=== PATIENT | female | born 1960 | race Caucasian/White ===

== ENCOUNTER 2023-02-15 11:13 | Emergency (ER) | payer OTHER ==
[~2023-02-15] VITALS: Ht 160 cm; Wt 96.4 kg
[2023-02-15 12:24] LABS: Urine Bacteria FEW /hpf (None Seen); Urine Blood Negative /uL (Negative); Urine Clarity Clear (Clear); Urine Color Yellow (Yellow); Urine Hyaline Cast FEW /lpf (0 - 2); Urine Mucus FEW (None Seen); Urine Protein, UAD Negative (Negative); Urine Specific Gravity 1.017 (1.001-1.035); Urine Urobilinogen Normal (Negative); Urine WBC 2 /hpf (0 - 5)
[2023-02-15 15:57] VITALS: BP 142/82; PULSE 70; RESP 18; TEMP 97.7; O2SAT 96
== END 2023-02-15 16:56 | disposition home or self-care (01) ==
LOC: ER 11:13
DX: M24.812 Other specific joint derangements of left shoulder, not elsewhere classified (principal); M79.622 Pain in left upper arm; I10 Essential (primary) hypertension; F32.9 Major depressive disorder, single episode, unspecified; Z88.5 Allergy status to narcotic agent
CPT/HCPCS: 36415; 81001; 84484; 93005

== ENCOUNTER 2024-03-02 19:50 | Emergency (ER) | payer OTHER ==
[~2024-03-02] VITALS: Ht 160 cm; Wt 95.3 kg
[2024-03-02 20:26] LABS: Basophils # (auto) 0.1 10 ^3/uL (0-0.2); Eosinophils # (auto) 0.3 10 ^3/uL (0-0.8); Eosinophils % (auto) 2.9 % (0.0-7.0); Hematocrit 39.9 % (36.0-46.0); Hemoglobin 13.6 g/dL (12.2-16.2); Lymphocytes # (auto) 3.8 10 ^3/uL (0.4-5.4); Mean Corpuscular Volume 88.3 fL (80.0-100.0); Monocytes # (auto) 0.8 10 ^3/uL (0-1.3); Neutrophils # (auto) 4.1 10 ^3/uL (1.6-8.6); Neutrophils % (auto) 45.1 % (37.0-80.0); Nucleated Red Blood Cells % 0.2 %; Platelet Count (auto) 271 10^3/uL (140-450); Red Blood Cells 4.52 10^6/uL (4.0-5.20); Red Cell Distribution Width 13.9 % (11.8-14.3); White Blood Cell 9.1 10^3/uL (4.4-10.8)
[2024-03-02 20:43] LABS: Alanine Aminotransferase 22 U/L (7-40); Alkaline Phosphatase 125 U/L (46-116); Anion Gap 7 (5-15); BUN/Creatinine Ratio 17.4 (10.0-20.0); Blood Urea Nitrogen 19 mg/dL (9-23); Calcium 9.7 mg/dL (8.7-10.4); Carbon Dioxide 27 mmol/L (20-31); Chloride 106 mmol/L (98-107); Glucose 78 mg/dL (74-106); Potassium 4.3 mmol/L (3.5-5.1); Sodium 140 mmol/L (136-145)
[2024-03-02 20:44] LABS: Albumin 4.5 g/dL (3.2-4.8); Aspartate Aminotransferase 16 U/L (13-40); Bilirubin, Total 0.2 mg/dL (0.2-1.0); Total Protein 7.2 g/dL (5.7-8.2)
[2024-03-02 22:19] LABS: Urine Bacteria FEW /hpf (None Seen); Urine Blood Negative /uL (Negative); Urine Clarity Clear (Clear); Urine Color Colorless (Yellow); Urine Protein, UAD Negative (Negative); Urine Specific Gravity 1.006 (1.001-1.035); Urine Urobilinogen Normal (Negative); Urine WBC 1 /hpf (0 - 5); Urine pH 5.5 (5.0-9.0)
[2024-03-02] MEDS ORDERED: NAP500T PO (23:57)
[2024-03-03 00:18] VITALS: BP 136/62; PULSE 74; RESP 17; TEMP 97.9; O2SAT 98
[2024-03-03] MEDS: KETOROLAC TROMETH 30 MG/ML 1ML VIAL IM ONE (00:19)
== END 2024-03-03 00:32 | disposition home or self-care (01) ==
LOC: ER 19:50
DX: R68.84 Jaw pain (principal); I10 Essential (primary) hypertension
CPT/HCPCS: 36415; 71045; 80053; 81001; 84484; 85025; 93005; 96372; 99285; J1885